=== PATIENT | female | born 1955 | race Caucasian/White ===

== ENCOUNTER → 2017-07-13 | Outpatient (CLI) | payer MEDICAID ==
[~2017-07-13] MED LIST: ANAPROX DS550 MG PO; ASPIRIN325 MG PO; ASPIRIN81 M1 PO; ATARAX25 MG PO; CEFPROZIL500 MG PO; FLEXERIL5 MG PO; GLUCOPHAGE1000 MG PO; IBUPROFEN800 MG PO; LEVAQUIN250 M1 PO; LEVAQUIN750 MG PO; LEVOFLOXACIN500 MG PO; LOPID600 MG PO; METFORMIN500 MG PO; MOTRIN800 MG PO; Motrin,Rufen800 MG PO; NITROFURANTOIN100 M2 PO; NORCO 325 MG-51 TAB PO; OMNICEF300 MG PO; OYSTER SHELL C500 MG PO; PLAVIX75 MG PO; POTASSIUM20 MEQ PO; PRILOSEC20 MG PO; ROBITUSSIN AC 10 MG/ PO; SKELAXIN800 MG PO; TENORETIC-25/501 TAB PO; TRAMADOL HCL50 MG PO; VICODIN 5/500 505 MG PO; VICODIN 500 MG-1 TAB PO; VICODIN ES 7501 TAB PO; VITAMIN D50000 I2 PO; VITAMIN D50000 UNIT PO; Zofran4 MG PO
== END | disposition home or self-care (01) ==
LOC: ORTHO 01:47
DX: M19.012 Primary osteoarthritis, left shoulder (principal)

== ENCOUNTER → 2017-07-27 | Outpatient (CLI) | payer MEDICARE, MEDICAID | END | disposition home or self-care (01) | LOC: MRI 10:29 | DX: M19.012 Primary osteoarthritis, left shoulder (principal); M75.102 Unspecified rotator cuff tear or rupture of left shoulder, not specified as traumatic ==

== ENCOUNTER 2017-08-24 12:33 | Inpatient (IN) | payer MEDICARE, MEDICAID ==
[~2017-08-24] VITALS: Ht 165.1 cm; Wt 99.3 kg
--- NOTE | ~2017-08-24 | PR ---
[place], [place] PROGRESS NOTE NAME: HARPAL OLMOS LOCATED WITHIN [facility] #: [id number] UNIT #: [id number] ROOM: 503 DOCTOR: JEANIE LIANG MD BIRTHDATE: [birth year] DOS: 08/29/2017 CARDIOLOGY PROGRESS NOTE SUBJECTIVE: The patient was seen at her bedside today, 08/29/2017, for followup of her chest pain and abnormal electrocardiogram. She is a 62-year-old woman who presented to the hospital on 08/24/2017 with bronchitis. During her hospitalization, she did complain to staff that she was having episodes of chest pain and therefore a pharmacologic stress test was done on 08/28/2017. This did show extensive anterior lateral and inferior ischemia with transient left ventricular cavity dilation. She did not have many fixed defects; however, and her resting ejection fraction was normal. We therefore felt that she would be best served by cardiac catheterization and revascularization. I discussed this with her caregivers as well as with the patient and her friends. They have agreed to proceed with catheterization. The study is now scheduled for 10:30 a.m. at the [facility] on 08/30/2017. The patient did have a brief episode of chest pain this morning, which resolved spontaneously. She is now pain free. PHYSICAL EXAMINATION: VITAL SIGNS: Today her pulse is 93 and regular, blood pressure is 158/90. She is afebrile and weighs 99.3 kilograms with a body mass index of 36.4. HEENT: Normocephalic and atraumatic. Extraocular muscles are intact. Sclerae are clear. Pupils are equal, round and react to light. The oral mucosa is moist. Tongue is midline. NECK: Supple. She has no jugular distention. Carotids are full. I heard no bruits. She had no neck or supraclavicular masses. LUNGS: Respirations are unlabored. CHEST: Clear to auscultation. She has no presacral edema or chest wall tenderness. HEART: Has a regular rhythm with a soft S4 gallop, but no S3 or murmur. The PMI is not displaced. There is no precordial heave, lift or thrill. ABDOMEN: Soft and normally active without masses, organomegaly or bruits. EXTREMITIES: Showed no edema. Peripheral pulses were absent in the right foot and diminished on the left. LABORATORY DATA: Today showed sodium 135, potassium 3.8, BUN of 26 and creatinine of 1.0. IMPRESSION: 1. Abnormal stress test, consistent with multivessel coronary artery disease. 2. Multiple risk factors for coronary artery disease including established peripheral vascular disease, diabetes, hypertension, hyperlipidemia and cigarette abuse. 3. Acute exacerbation of lung disease, controlled on current medical management. PLAN: The patient is being transferred to the [facility] on 08/30/2017 for catheterization and probable revascularization. The patient does [place], [place] PROGRESS NOTE NAME: HARPAL OLMOS UNIT #: [id number] ROOM: 503 DOCTOR: GARTH NUNN,JEANIE BIRTHDATE: [birth year] understand that there is a risk of heart attack, stroke, , bleeding, bruising, dye reaction, irregular heartbeat, infection, etc. and has agreed to proceed. Her indication is 17 with a score of 9. I thank the hospitalist physicians for asking our advice regarding her care. JEANIE LIANG MD CM:PNTRANS [phone] JEANIE LIANG MD 08/29/[id number] interface
--- NOTE | ~2017-08-24 | PROC NOTE ---
[place], [place] PROCEDURE NOTE NAME: HARPAL OLMOS UNIT #: [id number] ROOM: 503 DOCTOR: MILAN PRICE MD,SONNY BIRTHDATE: [birth year] DOS: 08/29/2017 BRONCHOSCOPY NOTE PREOPERATIVE DIAGNOSES: Persistent cough and wheezing, not resolving on current medical management. POSTOPERATIVE DIAGNOSES: Removal of the multiple plugs of mucus from the endobronchial tree bilaterally without any obstructive lesion and findings of acute tracheobronchitis. PROCEDURE DESCRIPTION: Informed consent obtained for the patient. She was brought to the OR and placed in supine position. Conscious sedation administered by the Anesthesia Department. After achieving proper sedation, airway introduced into the mouth. Bronchoscope advanced to the airway into laryngeal area. The epiglottis and vocal cords were seen. The bronchoscope was advanced to vocal cords, which were noted yellowish in color, moving symmetrically with movements, and then into the trachea, noted moderate to large amount of thick mucoid secretion with mixture of purulent secretion, suctioned at naomie level. The patient noted with severe deeper impaction in the lower lobe endobronchial tree bilaterally. All the endobronchial tree was inspected. Bronchial washing collected of bilateral endobronchial tree. Findings of acute tracheobronchitis noted. Submucosal edema of the endobronchial tree and the trachea. Postoperative findings will be discussed when the patient recovers from the effects of acute sedation. There were no other abnormal findings noted including any endobronchial obstructive lesions. Based on the bronchoscopy of the patient at this time, the dose of Solu-Medrol will be decreased to 60 mg b.i.d. from today. Cultures will be monitored. SONNY YATES MD CM:PROCNOTE:PROCEDURE NOTE [id number] SONNY PRICE MD
--- NOTE | ~2017-08-24 | PR ---
[place], [place] PROGRESS NOTE NAME: HARPAL OLMOS [facility] #: [id number] UNIT #: [id number] ROOM: 503 DOCTOR: MILAN PRICE MD,SONNY BIRTHDATE: [birth year] DOS: 08/29/2017 SUBJECTIVE: She remains the same at this time with the respiratory symptoms, severe coughing, shortness breath, wheezing, and chest tightness. Denies headache, nausea, and vomiting. Denies symptoms of diplopia. Denies edema or pain of the lower extremity. Denies symptoms of seizures. The remaining systems were reviewed and they were noted all negative. She remains n.p.o. past midnight and bronchoscopy is planned for today. OBJECTIVE: VITAL SIGNS: Normal temperature, respiratory rate 18, heart rate 89, blood pressure 166/81-143/71. The pulse oxygen saturation of the patient recorded on room air as 93% saturation. HEENT: Chronic obesity. NECK: Supple. CARDIOVASCULAR: S1, S2 audible without any added sounds. LUNGS: Moderate diminished breath sounds bilaterally with decreased air entry. Expiratory wheezing. There were no crackles. ABDOMEN: Soft with moderate obesity, bowel sounds present without tenderness. CENTRAL NERVOUS SYSTEM: Nonfocal. MUSCULOSKELETAL: No deformities. SKIN: No lesions or rashes. EXTREMITIES: Without any edema, clubbing, or cyanosis. LABORATORY DATA: Culture of the spontaneous sputum of the patient noted with light growth of yeast. The patient has a myocardial perfusion scan, which was done yesterday, assessed by Dr. Stark, reported with findings as abnormal study with finding of ischemia in the anterolateral and inferior wall with a transient left ventricular cavity dilatation consistent with three-vessel coronary artery disease. The left ventricle ejection fraction is noted at 81%. IMPRESSION: 1. The patient who has been currently noted with ongoing severe respiratory symptoms with exacerbation of COPD with nonresolving respiratory symptom. Musculoskeletal chest pain was also noted secondary to excessive cough, suspected coronary artery disease with current abnormal stress testing. 2. Chronic obesity. 3. History of nicotine dependence. PLAN OF MANAGEMENT: Proceed with the bronchoscopy at this time No changes in the treatment at this time immediately will be necessary. Any modification in treatment of the patient if necessary will be done after the bronchoscopy. The dose of corticosteroids essentially remains the same at 60 mg q. 8 hours. [place], [place] PROGRESS NOTE NAME: HARPAL OLMOS UNIT #: [id number] ROOM: 503 DOCTOR: MILAN PRICE MD,SONNY BIRTHDATE: [birth year] SONNY YATES MD CM:PNMANDIE [id number] SONNY PRICE MD 08/30/17 0205 interface
--- NOTE | ~2017-08-24 | CON ---
[place], [place] REPORT OF CONSULTATION NAME: HARPAL OLMOS [facility] #: [id number] UNIT #: [id number] ROOM: 503 DOCTOR: JEANIE LIANG MD BIRTHDATE: [birth year] DOS: 08/28/2017 CHIEF COMPLAINT: Chest discomfort and dyspnea. HISTORY OF PRESENT ILLNESS: The patient is a 62-year-old woman with multiple risk factors for coronary artery disease, but no previous history of heart disease. She is known to have peripheral vascular disease and is status post bilateral lower extremity angiography and stenting by Dr. Fountain. Recently, she has noticed increased cough productive of sputum associated with chest pressure. She was brought into the hospital where she was treated for pneumonitis, although her chest x-ray and CAT scan showed no evidence for infection. Her white count on admission and temperature were normal. In the hospital, she has continued to complain of chest discomfort, some of which is relieved by bronchodilators and some of which is not. She also complains of indigestion again, some of which is relieved by antacids and some is not. Today, she did undergo a pharmacologic stress test, which she tolerated well. It showed a large area of anterior, lateral and inferior reversible ischemia. Ejection fraction was preserved at 81% and no wall motion abnormalities were seen. However, the patient did have transient cavity dilation, suggesting multivessel disease. I notified this result to her attending physicians and they asked us to evaluate her further. PAST MEDICAL HISTORY: Includes: 1. Type 2 diabetes mellitus, currently on insulin. 2. Hyperlipidemia. 3. Hypertension. 4. Long-term intermittent, but ongoing tobacco abuse. 5. Status post bilateral lower extremity angiography and stenting. MEDICATIONS PRIOR TO ADMISSION: Aspirin 325 mg daily, atenolol with chlorthalidone 25/50 once a day, calcium carbonate 500 mg b.i.d., clopidogrel 75 mg daily, doxycycline 100 mg b.i.d., gemfibrozil 600 mg daily, glyburide 2.5 mg b.i.d., metformin 1000 mg b.i.d., potassium 20 mEq daily and prednisone 10 mg on 5 tablets daily on a tapering dose schedule. ALLERGIES: She lists allergies to SULFA DRUGS, ERYTHROMYCIN, and TRIMETHOPRIM. FAMILY HISTORY: Her father had coronary artery disease and diabetes. Her mother had coronary artery disease and diabetes. Both are . REVIEW OF SYSTEMS: The patient denies diplopia or loss of vision. She denies lightheadedness or syncope. She denies orthopnea or PND. She denies fevers, chills, sweats or recent weight change. She denies nausea or vomiting. She denies hemoptysis or hematemesis. She has had a minimally productive cough, but denies fevers or chills. She does admit to indigestion, some of which is exertional. She denies any change in bowel or bladder habits and denies blood in her stools or urine. She denies any peripheral edema. She does get some cramping and aching in her legs when she walks, she does note some tingling in her toes, which she describes as neuropathy. The remainder of the review of systems is negative except as noted above. [place], [place] REPORT OF CONSULTATION NAME: HARPAL OLMOS UNIT #: [id number] ROOM: [facility] DOCTOR: JEANIE LIANG MD BIRTHDATE: [birth year] SOCIAL HISTORY: The patient smokes 1/2-1 pack of cigarettes per week. PHYSICAL EXAMINATION: GENERAL: The patient is a well-nourished white female who is awake, alert and oriented. VITAL SIGNS: Pulse is 96 and regular, blood pressure is 159/73. She is afebrile. She weighs 99.3 kg and has a body mass index of 36.4. HEENT: Normocephalic and atraumatic. Extraocular muscles are intact. Sclerae are clear. Pupils equal, round and react to light. The oral mucosa is moist. Tongue is midline. NECK: Supple. She has no jugular distention. Carotids are full. I heard no bruits. She had no neck or supraclavicular masses and no thyromegaly. LUNGS: Respirations are unlabored at rest. She has mild expiratory prolongation now, but earlier today when I examined her. She did have audible wheezing bilaterally. She has no presacral edema or chest wall tenderness. CARDIOVASCULAR: Has a regular rhythm. She has soft S4 gallop, but no S3 or murmur. The PMI is not displaced. She has no precordial heave, lift or thrill. ABDOMEN: Soft and normally active without masses, organomegaly or bruits. EXTREMITIES: Showed no edema. Peripheral pulses are absent in the right foot and diminished on the left. LABORATORY DATA: I reviewed her electrocardiograms. On admission, she did have ST segment depressions in the mid precordial leads as well as the inferior leads that have improved on subsequent tracings. IMPRESSION: 1. Abnormal stress test consistent with multivessel coronary artery disease. 2. Multiple risk factors for coronary artery disease including established peripheral vascular disease, diabetes, hypertension, hyperlipidemia, and cigarette abuse. 3. Acute exacerbation of lung disease. 4. Type 2 diabetes mellitus, on insulin. 5. Essential hypertension. 6. Established peripheral vascular disease status post bilateral lower extremity stents. 7. Essential hypertension. PLAN: We will place the patient on high dose statin therapy and continue her aspirin. For now, I will withhold Plavix in case she does require a surgical intervention. I have discussed with the patient her options, but I believe that her best option is to proceed with catheterization as soon as her pulmonary status has been stabilized. I think that she can proceed with her bronchoscopy as scheduled since she does not show signs of unstable angina at this point, but should proceed with catheterization shortly after that once her pulmonary status has improved. Catheterization indication is 17 with a score of 9. I have discussed catheterization with the patient including risk of heart attack, stroke, , bleeding, bruising, dye reaction, irregular heartbeats, infections, etc. She has agrees to proceed. [place], [place] REPORT OF CONSULTATION NAME: HARPAL OLMOS UNIT #: [id number] ROOM: 503 DOCTOR: JEANIE LIANG MD BIRTHDATE: [birth year] [facility] and I thank the hospitalist group for asking our advice regarding the patient's care. JEANIE LIANG MD CM:CONSTR:REPORT OF CONSULTATION 1748 08/29/17 1604 interface
--- NOTE | ~2017-08-24 | CON ---
[place], [place] REPORT OF CONSULTATION NAME: HARPAL OLMOS [facility] #: [id number] UNIT #: [id number] ROOM: 503 DOCTOR: SONNY TAPIA MD BIRTHDATE: [birth year] DOS: 08/28/2017 PULMONARY CONSULTATION, EVALUATION, AND MANAGEMENT CONSULTATION REQUESTED BY: Hospitalist service. REASON FOR CONSULTATION: For assessment of persistent symptoms of shortness of breath with wheezing as well as nonproductive cough. HISTORY OF PRESENT ILLNESS: This is a 62-year-old white female who has been admitted to the hospital on 08/24/2017. The patient stated that she has been noted with ongoing acute respiratory complaints for the past several days. The symptoms of the patient started gradually with a cough, which was noted later on progression. Cough was noted initially productive and later noted completely nonproductive. Currently, the patient has not been able to expectorate sputum and trying to cough very hard. She was also noted symptoms of wheezing and chest tightness. Denies symptoms of hemoptysis. The patient denies symptoms of fever or chills. The symptoms of the patient prior to admission were noted approximately for 1 week. REVIEW OF SYSTEMS: CONSTITUTIONAL: Fatigue and tiredness noted, but no symptoms of fever or chills. EYES: Denies any burning, redness, or tenderness. EAR, NOSE, AND THROAT: No sore throat, hoarseness, otalgia, postnasal drainage or epistaxis. CARDIOVASCULAR: Denies anginal pain, edema or pain of the lower extremity. The patient reported pain, which was described in the right side of the chest, which is noncardiac [id number] at times worsened with the deep breathing and cough. GASTROINTESTINAL: Denies dysphagia, nausea, vomiting, diarrhea, abdominal pain, hematemesis, melena, or hematochezia. GENITOURINARY: Denies dysuria, suprapubic pain, hematuria. SKIN: Denies abnormal lesions or rashes. MUSCULOSKELETAL: Noted without any pain or tenderness. CENTRAL NERVOUS SYSTEM: No dizziness, headache, diplopia, syncopal episodes. Remaining systems were reviewed, they were noted all negative. PAST MEDICAL HISTORY: 1. Hyperlipidemia. 2. Type 2 diabetes mellitus. 3. Essential hypertension. 4. History of pancreatitis. 5. Nicotine dependence. 6. Peripheral vascular disease. PAST SURGICAL HISTORY: Reported with peripheral vascular disease intervention and stent insertion in bilateral lower extremity arteries. [place], [place] REPORT OF CONSULTATION NAME: HARPAL OLMOS [facility] #: [id number] UNIT #: [id number] ROOM: [facility] DOCTOR: SONNY TAPIA MD BIRTHDATE: [birth year] SOCIAL HISTORY: The patient stated she is single, not , does live with a boyfriend for many years, has 2 children. Tobacco use noted since teens for the patient up to 2-pack of cigarettes per day maximum and then gradual reduction of the tobacco use. The patient is currently smoking to about a pack a week. FAMILY HISTORY: The patient's father with complication related to coronary artery disease. Mother also with complication related to coronary artery disease. MEDICATIONS: Medication from home were noted as use of aspirin, Tenoretic, calcium with vitamin D, Plavix, gemfibrozil, metformin, and potassium chloride. DRUG ALLERGIES: 1. SULFA DRUGS. 2. ERYTHROMYCIN. PHYSICAL EXAMINATION: GENERAL: A 62-year-old female patient who has been currently noted without any acute distress, lying in the bed. VITAL SIGNS: Height of 5 feet 5 inches, weight of 219 pounds, BMI of 36.4, moderate obesity. HEENT: Head was atraumatic. Eyes nonicterus. NECK: Supple. Oral mucosa was moist. Moderate reduction of the posterior pharyngeal space, high tongue base crowding soft tissue structures. CARDIOVASCULAR: S1, S2 audible without any tachycardia or added sounds. LUNGS: Noted moderate decreased breath sounds, diffuse expiratory wheezing without any crackles at the present time. ABDOMEN: Soft. Bowel sounds present. SKIN: Visible skin, no lesions or rashes. MUSCULOSKELETAL: Without any acute deformities. CENTRAL NERVOUS SYSTEM: Cranial nerves 2-12 intact. There was no focal neurologic deficit. LABORATORY DATA: On admission, CBC for the patient hemoglobin 10.9, hematocrit 35.7, platelet count normal, WBC count normal, lactic acid 4.4. Subsequent followup lactic acid of the patient was noted at 3.3. The PT, PTT for the patient on 08/24/2017 was normal. BMP of the patient on 08/24/2017, BUN 40, creatinine 1.23. Remaining BMP was normal. Troponin for the patient 3 sets, which are noted on 08/24/2017 and the 08/25/2017 were all noted normal. CBC for the patient on 08/25/2017 was normal, WBC count, hemoglobin of 9.2, hematocrit 29.3, platelet count was normal. CMP for the patient on 08/25/2017, BUN 18, creatinine 1.24. Potassium 3.1. Influenza A and B, nasal washing antigen for the patient on 08/25/2017 were noted negative. Blood cultures 2 sets on the 08/24/2017 for this patient were noted no bacterial growths. Sputum for Gram stain and culture yesterday showed many white blood cells, moderate epithelial cells, moderate gram-positive cocci in pairs and chains and few gram-negative bacilli, and normal erlinda preliminary. CBC this morning, WBC count 11,000, remaining CBC essentially remains the same as previously. CMP of this morning, BUN 26, creatinine was normal. Sodium 135. [place], [place] REPORT OF CONSULTATION NAME: HARPAL OLMOS UNIT #: [id number] ROOM: [facility] DOCTOR: LEIGHANN TAPIA MDM BIRTHDATE: [birth year] DIAGNOSTIC DATA: Review of the radiology data for this patient. The CT scan of chest, which was done without contrast for the patient on 08/24/2017 was noted without any acute pulmonary infiltration, other major abnormalities. Incidental finding 2.6 cm adrenal adenoma was reported by the radiology services. Hepatic steatosis was also identified. IMPRESSION: 1. The patient will be currently admitted to the hospital with acute exacerbation of chronic obstructive pulmonary disease, acute tracheobronchitis for the past 4 days. Continue have severe nonproductive cough and wheezing intermittently as well as chest pain, which is a noncardiac for the patient with musculoskeletal pain because of the excessive cough and inability to expectorate sputum. 2. History of low-grade nicotine abuse and has smoked heavily in the past up to 2 packs of cigarettes per day. 3. Moderate obesity as well. PLAN OF MANAGEMENT: 1. The patient will be continued conservative treatment at this time, but she has not noted effective to resolve her current symptoms. The symptom remains persistent with suspicion of impaction of the mucus plug of the patient airways and current musculoskeletal chest pain. 2. Continue Solu-Medrol, bronchodilators, high dose of Mucinex 1200 mg p.o. b.i.d. She will benefit from therapeutic bronchoscopy, which was planned to be done tomorrow morning. The risk and benefits of procedure were done for this patient. Supportive plan of management and care. Absolute tobacco use was also discussed with the patient. She understood the procedure bronchoscopy and agreeable to have it done tomorrow morning. The procedure was scheduled to be done for this patient tomorrow. The n.p.o. past midnight status will be achieved. SONNY YATES MD CM:CONSTR:REPORT OF CONSULTATION 1218 08/29/17 0032 interface
[2017-08-24 12:36] VITALS: BP 137/63
[2017-08-24 13:36] VITALS: BP 122/65
[2017-08-24 13:39] LABS: BASO # 0.1 10*3/uL (0.0-0.1); EOS # 0.1 10*3/uL (0.0-0.4); EOS % 1.2 % (1.0-4.0); HEMATOCRIT 35.7 % (37.0-47.0); HEMOGLOBIN 10.9 g/dl (12.0-16.0); LYMPH % 33.9 % (27.0-41.0); MEAN CELL VOLUME 82.1 fl (81.0-99.0); MEAN CORPUSCULAR HGB 25.1 pg (27.0-31.0); MEAN CORPUSCULAR HGB CONC 30.5 g/dl (33.0-37.0); MEAN PLATELET VOLUME 12.2 fl (9.6-12.3); MONO # 0.7 10*3/uL (0.1-1.0); MONO % 11.4 % (3.0-9.0); NEUT % 52.2 % (47.0-73.0); PLATELET COUNT AUTOMATED 300 10*3/uL (130-400); RED BLOOD COUNT 4.35 10*6/uL (4.10-5.10); RED CELL DISTRI WIDTH 16.9 % (0-14.5); WHITE BLOOD COUNT 5.8 10*3/uL (4.8-10.8)
[2017-08-24 13:53] LABS: ACT PARTIAL THROMBO TIME 22.2 SECONDS (20.8-31.5); INTERNATIONAL NORM RATIO 0.9 (2.0-3.5)
[2017-08-24 13:54] LABS: ALBUMIN 3.5 gm/dl (3.1-4.5); ALKALINE PHOSPHATASE 95 U/L (45-117); BUN 20 mg/dl (7-24); CHLORIDE 99 mmol/L (98-107); CREATININE 1.23 mg/dL (0.55-1.02); LIPASE 466 U/L (73-393); POTASSIUM 3.7 mmol/L (3.5-5.1); SGOT/AST 26 IU/L (3-35); SGPT/ALT 20 U/L (12-78); SODIUM 138 mmol/L (136-145); TOTAL PROTEIN 8.2 gm/dL (6.4-8.2)
[2017-08-24 13:56] LABS: TROPONIN I < 0.015 ng/ml (<0.045)
[2017-08-24 15:10] VITALS: BP 115/56
[2017-08-24 16:00] VITALS: BP 108/58
[2017-08-24 20:00] VITALS: BP 132/57
[2017-08-25] VITALS: BP 152/68
[2017-08-25 06:56] LABS: MEAN PLATELET VOLUME 12.6 fl (9.6-12.3)
[2017-08-25 07:05] LABS: HEMOGLOBIN 9.2 g/dl (12.0-16.0); LYMPH # 0.6 10*3/uL (1.3-4.4); LYMPH % 12.6 % (27.0-41.0); MEAN CELL VOLUME 80.3 fl (81.0-99.0); MEAN CORPUSCULAR HGB 25.2 pg (27.0-31.0); MEAN CORPUSCULAR HGB CONC 31.4 g/dl (33.0-37.0); MONO # 0.3 10*3/uL (0.1-1.0); MONO % 5.2 % (3.0-9.0); NEUT # 3.9 10*3/uL (2.3-7.9); NEUT % 81.8 % (47.0-73.0); PLATELET COUNT AUTOMATED 239 10*3/uL (130-400); RED BLOOD COUNT 3.65 10*6/uL (4.10-5.10); RED CELL DISTRI WIDTH 16.7 % (0-14.5); WHITE BLOOD COUNT 4.8 10*3/uL (4.8-10.8)
[2017-08-25 07:06] LABS: HEMATOCRIT 29.3 % (37.0-47.0)
[2017-08-25 07:26] LABS: CREATININE 1.24 mg/dL (0.55-1.02); FREE T4 1.02 ng/dl (0.76-1.46); POTASSIUM 3.1 mmol/L (3.5-5.1); TOTAL PROTEIN 7.2 gm/dL (6.4-8.2)
[2017-08-25 07:32] LABS: THYROID STIM HORMONE (HS) 0.791 uIU/ml (0.358-4.75)
[2017-08-25 08:42] VITALS: BP 128/59
[2017-08-25 09:42] LABS: VITAMIN D, 25-HYDROXY 26.2 ng/mL (30-100)
[2017-08-25 12:00] VITALS: BP 131/65
[2017-08-25 16:00] VITALS: BP 146/60
[2017-08-25 20:00] VITALS: BP 150/68
[2017-08-26] VITALS: BP 140/62
[2017-08-26 06:44] LABS: BUN 19 mg/dl (7-24); CHLORIDE 98 mmol/L (98-107); CREATININE 1.08 mg/dL (0.55-1.02); PHOSPHOROUS 2.3 mg/dL (2.5-4.9); POTASSIUM 3.3 mmol/L (3.5-5.1); SODIUM 137 mmol/L (136-145)
[2017-08-26 08:00] VITALS: BP 142/70
[2017-08-26 12:00] VITALS: BP 135/73
[2017-08-26 16:00] VITALS: BP 131/59
[2017-08-26 20:00] VITALS: BP 145/72
[2017-08-27 00:03] VITALS: BP 121/61
[2017-08-27 06:15] LABS: HEMATOCRIT 28.9 % (37.0-47.0); HEMOGLOBIN 8.8 g/dl (12.0-16.0); LYMPH % 9.3 % (27.0-41.0); MEAN CELL VOLUME 81.9 fl (81.0-99.0); MEAN CORPUSCULAR HGB 24.9 pg (27.0-31.0); MEAN CORPUSCULAR HGB CONC 30.4 g/dl (33.0-37.0); MEAN PLATELET VOLUME 12.7 fl (9.6-12.3); MONO # 0.4 10*3/uL (0.1-1.0); NEUT # 8.8 10*3/uL (2.3-7.9); NEUT % 85.4 % (47.0-73.0); PLATELET COUNT AUTOMATED 271 10*3/uL (130-400); RED BLOOD COUNT 3.53 10*6/uL (4.10-5.10); RED CELL DISTRI WIDTH 16.7 % (0-14.5); WHITE BLOOD COUNT 10.3 10*3/uL (4.8-10.8)
[2017-08-27 06:45] LABS: BUN 23 mg/dl (7-24); CHLORIDE 96 mmol/L (98-107); CREATININE 0.98 mg/dL (0.55-1.02); POTASSIUM 3.3 mmol/L (3.5-5.1); SODIUM 137 mmol/L (136-145)
[2017-08-27 08:00] VITALS: BP 156/78
[2017-08-27 12:00] VITALS: BP 165/83
[2017-08-27] MEDS ORDERED: DOXYCYCLINE100 M3 PO (12:02)
[2017-08-27] MEDS ORDERED: PREDNISONE10 MG PO (12:02)
[2017-08-27] MEDS ORDERED: Diabeta,Micron2.5 MG PO (12:03)
[2017-08-27 16:07] VITALS: BP 170/76
[2017-08-27 20:09] VITALS: BP 130/64
[2017-08-28] VITALS: BP 142/66; BP 150/71
[2017-08-28 08:00] VITALS: BP 158/85
[2017-08-28 09:01] LABS: BASO % 0.1 % (0.0-1.0); HEMATOCRIT 31.4 % (37.0-47.0); HEMOGLOBIN 9.8 g/dl (12.0-16.0); LYMPH # 1.3 10*3/uL (1.3-4.4); LYMPH % 12.1 % (27.0-41.0); MEAN CELL VOLUME 79.9 fl (81.0-99.0); MEAN CORPUSCULAR HGB 24.9 pg (27.0-31.0); MEAN CORPUSCULAR HGB CONC 31.2 g/dl (33.0-37.0); MEAN PLATELET VOLUME 11.9 fl (9.6-12.3); MONO # 0.7 10*3/uL (0.1-1.0); NEUT # 8.8 10*3/uL (2.3-7.9); NEUT % 80.4 % (47.0-73.0); PLATELET COUNT AUTOMATED 271 10*3/uL (130-400); RED BLOOD COUNT 3.93 10*6/uL (4.10-5.10); RED CELL DISTRI WIDTH 16.6 % (0-14.5); RETICULOCYTE % 1.53 % (0.50-2.50)
[2017-08-28 09:19] LABS: IRON 31 ug/dL (50-170); TOTAL IRON BINDING CAPACITY 443 ug/dl (250-450)
[2017-08-28 09:23] LABS: ALBUMIN 3.4 gm/dl (3.1-4.5); ALKALINE PHOSPHATASE 69 U/L (45-117); BUN 26 mg/dl (7-24); CHLORIDE 93 mmol/L (98-107); POTASSIUM 3.8 mmol/L (3.5-5.1); SGOT/AST 16 IU/L (3-35); SGPT/ALT 21 U/L (12-78); SODIUM 135 mmol/L (136-145); TOTAL PROTEIN 7.5 gm/dL (6.4-8.2)
[2017-08-28 12:00] VITALS: BP 159/73
[2017-08-28 16:00] VITALS: BP 174/78
[2017-08-28 20:00] VITALS: BP 159/72
[2017-08-29] VITALS (9 sets, daily range): BP systolic 142–176; BP diastolic 66–90
[2017-08-30] VITALS: BP 165/78
[2017-08-30 16:08] LABS: ACID FAST SMEAR Negative (.); ACID FAST SPEC PROCESSING Concentration (.)
== END 2017-08-30 08:01 | disposition short-term general hospital (02) | DRG 193 ==
LOC: ED 12:33 → EDHOLD 15:22 → 5E 15:22
PROVIDERS: Emergency Medicine; Family Medicine; Internal Medicine; Internal Medicine Critical Care Medicine; Registered Nurse
PROC: 4A02XM4 Measurement of Cardiac Total Activity, External Approach (ICD-10-PCS; principal; 2017-08-28)
PROC: 3E073KZ Introduction of Other Diagnostic Substance into Coronary Artery, Percutaneous Approach (ICD-10-PCS; principal; 2017-08-28)
PROC: 0BC98ZZ Extirpation of Matter from Lingula Bronchus, Via Natural or Artificial Opening Endoscopic (ICD-10-PCS; 2017-08-29)
PROC: 0BC78ZZ Extirpation of Matter from Left Main Bronchus, Via Natural or Artificial Opening Endoscopic (ICD-10-PCS; 2017-08-29)
PROC: 0BC88ZZ Extirpation of Matter from Left Upper Lobe Bronchus, Via Natural or Artificial Opening Endoscopic (ICD-10-PCS; 2017-08-29)
PROC: 0BC68ZZ Extirpation of Matter from Right Lower Lobe Bronchus, Via Natural or Artificial Opening Endoscopic (ICD-10-PCS; 2017-08-29)
PROC: 0BC48ZZ Extirpation of Matter from Right Upper Lobe Bronchus, Via Natural or Artificial Opening Endoscopic (ICD-10-PCS; 2017-08-29)
PROC: 0BCB8ZZ Extirpation of Matter from Left Lower Lobe Bronchus, Via Natural or Artificial Opening Endoscopic (ICD-10-PCS; 2017-08-29)
PROC: 0BC58ZZ Extirpation of Matter from Right Middle Lobe Bronchus, Via Natural or Artificial Opening Endoscopic (ICD-10-PCS; 2017-08-29)
PROC: 0BC38ZZ Extirpation of Matter from Right Main Bronchus, Via Natural or Artificial Opening Endoscopic (ICD-10-PCS; 2017-08-29)
PROC: 0BC18ZZ Extirpation of Matter from Trachea, Via Natural or Artificial Opening Endoscopic (ICD-10-PCS; 2017-08-29)
DX: J18.9 Pneumonia, unspecified organism (principal); N17.0 Acute kidney failure with tubular necrosis; E87.2 Acidosis; J44.0 Chronic obstructive pulmonary disease with (acute) lower respiratory infection; J44.1 Chronic obstructive pulmonary disease with (acute) exacerbation; T17.590A Other foreign object in bronchus causing asphyxiation, initial encounter; E11.65 Type 2 diabetes mellitus with hyperglycemia; D50.9 Iron deficiency anemia, unspecified; D35.00 Benign neoplasm of unspecified adrenal gland; R07.89 Other chest pain; E11.51 Type 2 diabetes mellitus with diabetic peripheral angiopathy without gangrene; J20.9 Acute bronchitis, unspecified; E66.8 Other obesity; E86.0 Dehydration; X58.XXXA Exposure to other specified factors, initial encounter; B34.9 Viral infection, unspecified; I10 Essential (primary) hypertension; E78.5 Hyperlipidemia, unspecified; Z72.0 Tobacco use; Z88.1 Allergy status to other antibiotic agents; Z88.2 Allergy status to sulfonamides; Z88.8 Allergy status to other drugs, medicaments and biological substances; Z79.2 Long term (current) use of antibiotics; Z79.82 Long term (current) use of aspirin; Z79.84 Long term (current) use of oral hypoglycemic drugs; Z79.899 Other long term (current) drug therapy; Z87.440 Personal history of urinary (tract) infections; Z90.49 Acquired absence of other specified parts of digestive tract; Z98.51 Tubal ligation status; Z83.3 Family history of diabetes mellitus; Z82.3 Family history of stroke; Z82.49 Family history of ischemic heart disease and other diseases of the circulatory system; Z71.6 Tobacco abuse counseling; Y93.89 Activity, other specified; Y92.89 Other specified places as the place of occurrence of the external cause; Y99.8 Other external cause status; Z68.36 Body mass index [BMI] 36.0-36.9, adult

== ENCOUNTER 2017-10-27 11:31 | Emergency (ER) | payer MEDICARE, MEDICAID ==
[~2017-10-27] VITALS: Ht 165.1 cm; Wt 99.8 kg
[~2017-10-27 11:31] MED LIST changes: +DOXYCYCLINE100 M3 PO; +Diabeta,Micron2.5 MG PO; +PREDNISONE10 MG PO
[2017-10-27] MEDS ORDERED: MEDROL DOSEPAK4 MG PO (13:25)
[2017-10-27] MEDS ORDERED: Fioricet 325 MG1 TAB PO (13:26)
== END 2017-10-27 13:28 | disposition home or self-care (01) ==
LOC: ED 11:31
DX: S16.1XXA Strain of muscle, fascia and tendon at neck level, initial encounter (principal); E11.9 Type 2 diabetes mellitus without complications; E78.5 Hyperlipidemia, unspecified; I10 Essential (primary) hypertension; Z88.2 Allergy status to sulfonamides; Z88.1 Allergy status to other antibiotic agents; Z79.82 Long term (current) use of aspirin; Z79.84 Long term (current) use of oral hypoglycemic drugs; Z79.899 Other long term (current) drug therapy; Z90.49 Acquired absence of other specified parts of digestive tract; Z98.51 Tubal ligation status; X58.XXXA Exposure to other specified factors, initial encounter; Y93.89 Activity, other specified; Y92.89 Other specified places as the place of occurrence of the external cause; Y99.8 Other external cause status

== ENCOUNTER 2018-01-06 14:54 | Emergency (ER) | payer MEDICARE, MEDICAID ==
[~2018-01-06] VITALS: Ht 165.1 cm; Wt 97.5 kg
[~2018-01-06 14:54] MED LIST changes: +Fioricet 325 MG1 TAB PO; +MEDROL DOSEPAK4 MG PO
[2018-01-06 15:05] LABS: BILIRUBIN NEGATIVE (NEGATIVE); BLOOD 1+ (NEGATIVE); CLARITY SL CLOUDY (CLEAR); COLOR YELLOW (YELLOW); GLUCOSE NEGATIVE (NEGATIVE); KETONE NEGATIVE (NEGATIVE); LEUKO ESTERASE 3+ (NEGATIVE); NITRITE NEGATIVE (NEGATIVE); UROBILINOGEN 0.2 E.U./dl (0.2-1.0)
[2018-01-06 15:13] LABS: WBC TNTC wbc/hpf (0-5)
[2018-01-06] MEDS ORDERED: PYRIDIUM200 M1 PO (15:18)
[2018-01-06] MEDS ORDERED: MACROBID100 M1 PO (15:18)
== END 2018-01-06 15:30 | disposition home or self-care (01) ==
LOC: ED 14:54
PROVIDERS: Nurse Practitioner Family
DX: N39.0 Urinary tract infection, site not specified (principal); I10 Essential (primary) hypertension; E78.5 Hyperlipidemia, unspecified; F17.200 Nicotine dependence, unspecified, uncomplicated; Z88.2 Allergy status to sulfonamides; Z88.1 Allergy status to other antibiotic agents; Z79.899 Other long term (current) drug therapy; Z79.82 Long term (current) use of aspirin

== ENCOUNTER → 2018-01-11 | Outpatient (CLI) | payer MEDICARE, MEDICAID ==
[~2018-01-11] MED LIST changes: +MACROBID100 M1 PO; +PYRIDIUM200 M1 PO
== END | disposition home or self-care (01) ==
LOC: MRI 13:43
DX: M48.02 Spinal stenosis, cervical region (principal); M50.322 Other cervical disc degeneration at C5-C6 level; M50.323 Other cervical disc degeneration at C6-C7 level; M50.222 Other cervical disc displacement at C5-C6 level; M50.223 Other cervical disc displacement at C6-C7 level; M54.12 Radiculopathy, cervical region

== ENCOUNTER → 2019-02-28 | Outpatient (CLI) | payer MEDICARE, MEDICAID | END | disposition home or self-care (01) | LOC: CT 10:20 → MAMMO 10:20 → CT 10:52 | DX: R42 Dizziness and giddiness (principal); R51 Headache ==

== ENCOUNTER 2019-05-16 10:14 | Emergency (ER) | payer MEDICARE, MEDICAID ==
[~2019-05-16] VITALS: Ht 165.1 cm; Wt 92.1 kg
[2019-05-16 10:37] LABS: BILIRUBIN 1+ (NEGATIVE); BLOOD 3+ (NEGATIVE); CLARITY CLOUDY (CLEAR); GLUCOSE NEGATIVE (NEGATIVE); KETONE NEGATIVE (NEGATIVE); LEUKO ESTERASE 3+ (NEGATIVE); NITRITE POSITIVE (NEGATIVE); SPECIFIC GRAVITY 1.015 (1.005-1.030)
[2019-05-16 10:49] LABS: COLOR ORANGE (YELLOW)
[2019-05-16 10:51] LABS: RBC TNTC rbc/hpf (0-2)
[2019-05-16] MEDS ORDERED: CEFUROXIME250 MG PO (11:07)
[2019-05-16] MEDS ORDERED: PYRIDIUM100 MG PO (12:08)
== END 2019-05-16 12:30 | disposition home or self-care (01) ==
LOC: ED 10:14
PROVIDERS: Nurse Practitioner Family
DX: N39.0 Urinary tract infection, site not specified (principal); F17.200 Nicotine dependence, unspecified, uncomplicated; Z79.899 Other long term (current) drug therapy; Z79.82 Long term (current) use of aspirin; Z88.2 Allergy status to sulfonamides; Z88.1 Allergy status to other antibiotic agents

== ENCOUNTER 2019-06-26 10:25 | Inpatient (IN) | payer MEDICARE, MEDICAID ==
[~2019-06-26] VITALS: Ht 165.1 cm; Wt 89.2 kg
[2019-06-26] VITALS (7 sets, daily range): BP systolic 138–177; BP diastolic 70–78
[~2019-06-26 10:25] MED LIST changes: +CEFUROXIME250 MG PO; +KLOR-CON M2020 ME1 PO; +LOPID600 M1 PO; -LOPID600 MG PO; -POTASSIUM20 MEQ PO; +PYRIDIUM100 MG PO
--- NOTE | 2019-06-26 11:05 | NUR ---
PT HAS BEEN GIVEN A LUNCH TRAY AT THIS TIME. WILL RECHECK GLUCOSE LEVEL. PT REMAINS ALERT. CRISTINO PACHECO
[2019-06-26 11:32] LABS: BASO # 0.1 10*3/uL (0.0-0.1); BASO % 0.5 % (0.0-1.0); EOS % 0.1 % (1.0-4.0); HEMATOCRIT 38.4 % (37.0-47.0); HEMOGLOBIN 11.3 g/dl (12.0-16.0); LYMPH # 0.9 10*3/uL (1.3-4.4); LYMPH % 8.2 % (27.0-41.0); MEAN CELL VOLUME 83.1 fl (81.0-99.0); MEAN CORPUSCULAR HGB 24.5 pg (27.0-31.0); MEAN CORPUSCULAR HGB CONC 29.4 g/dl (33.0-37.0); MEAN PLATELET VOLUME 10.8 fl (9.6-12.3); MONO # 0.4 10*3/uL (0.1-1.0); MONO % 3.8 % (3.0-9.0); NEUT # 9.2 10*3/uL (2.3-7.9); NEUT % 87.1 % (47.0-73.0); PLATELET COUNT AUTOMATED 402 10*3/uL (130-400); RED BLOOD COUNT 4.62 10*6/uL (4.10-5.10); RED CELL DISTRI WIDTH 18.5 % (0-14.5); WHITE BLOOD COUNT 10.6 10*3/uL (4.8-10.8)
[2019-06-26 11:43] LABS: INTERNATIONAL NORM RATIO 0.9 (2.0-3.5)
[2019-06-26 11:59] LABS: ALBUMIN 3.4 gm/dl (3.1-4.5); ALKALINE PHOSPHATASE 110 U/L (45-117); BUN 21 mg/dl (7-24); CHLORIDE 99 mmol/L (98-107); CREATININE 1.33 mg/dL (0.55-1.02); LIPASE 209 U/L (73-393); POTASSIUM 3.7 mmol/L (3.5-5.1); SGOT/AST 20 IU/L (3-35); SGPT/ALT 12 U/L (12-78); SODIUM 136 mmol/L (136-145); TOTAL PROTEIN 7.9 gm/dL (6.4-8.2)
[2019-06-26 12:08] LABS: TROPONIN I < 0.015 ng/ml (<0.045)
--- NOTE | 2019-06-26 12:26 | NUR ---
PT IS SLEEPING NOW. RESPIRATIONS ARE NON-LABORED. SHE DID EAT LUNCH TRAY. MOST RECENT GLUCOSE IS 97. CRISTINO PACHECO
--- NOTE | 2019-06-26 12:50 | NUR ---
PT HAS BEEN AMBULATORY TO THE BATHROOM,DID PROVIDE URINE FOR A UA. REMAINS ALERT WITHOUT DISTRESS. CRISTINO PACHECO
[2019-06-26 13:22] LABS: BILIRUBIN NEGATIVE (NEGATIVE); BLOOD TRACE-INTACT (NEGATIVE); CLARITY SL CLOUDY (CLEAR); COLOR YELLOW (YELLOW); GLUCOSE NEGATIVE (NEGATIVE); KETONE NEGATIVE (NEGATIVE); LEUKO ESTERASE NEGATIVE (NEGATIVE); NITRITE NEGATIVE (NEGATIVE); SPECIFIC GRAVITY 1.015 (1.005-1.030); UROBILINOGEN 0.2 E.U./dl (0.2-1.0)
[2019-06-26 13:47] LABS: YEAST 1+
--- NOTE | 2019-06-26 14:25 | NUR ---
LACTIC ACID OF 3.9 REPORTED AT THIS TIME TO DR DE LA CRUZ. CRISTINO RN
--- NOTE | 2019-06-26 14:50 | NUR ---
A 64, admitted to , under the services of NANCY Marrufo DO with a diagnosis of ARF,HYPOGLYCEMIA, DEHYDRATION. Chief complaint is HYPOGLYCEMIA. Patient arrived via bed from ER. Monitor applied. Initial assessment completed. Vital signs taken and recorded. NANCY MARRUFO DO notified of admission to the unit. Orders received. See assessment for past medical history, medications and allergies. Patient and/or family oriented to unit. [facility] visitation policy reviewed. Clothing/patient valuable form completed. BOY PETERS
[2019-06-26] MEDS ORDERED: ALLEGRA-D 24 H1 EACH PO (15:12)
[2019-06-26] MEDS ORDERED: SALINE NASAL SP88 ML NAS (15:12)
[2019-06-26] MEDS ORDERED: CLOPIDOGREL75 MG PO (15:14)
[2019-06-26] MEDS ORDERED: GLYBURIDE2.5 MG PO (15:16)
[2019-06-26] MEDS ORDERED: IRON325 M1 PO (15:17)
--- NOTE | 2019-06-26 15:18 | NUR ---
MED REC UPDATED BASED ON LIST PROVIDED AND PT RECALL
--- NOTE | 2019-06-26 16:37 | NUR ---
DR MARTINS NOTIFIED REPEAT LACTIC ACID 3.1
--- NOTE | 2019-06-26 18:21 | NUR ---
NOTIFIED DR BOWER OF LACTIC ACID OF 2.7. NO NEW ORDERS AT THIS TIME.
--- NOTE | 2019-06-26 20:01 | NUR ---
PTS BP 162/[address] ROJAS. STATED TO GIVE HER A ONE TIME LOW DOSE OF ATENOLOL.
--- NOTE | 2019-06-26 22:00 | NUR ---
BLOOD SUGAR 181
--- NOTE | 2019-06-26 22:00 | NUR ---
NOTIFIFED DR ROJAS OF PATIENTS BP 164/70 MANUALLY. STATED HE WOULD PUT ORDERS IN.
--- NOTE | 2019-06-27 01:42 | NUR ---
Patient resting quietly with no c/o or s/s of discomfort. Respirations easy and regular. Vital signs stable. No overt distress. Call light within reach. HISSOM,COLLETTE
--- NOTE | 2019-06-27 05:03 | NUR ---
24 HR chart check completed.
--- NOTE | 2019-06-27 05:12 | NUR ---
PT COMPLAINS OF HEADACHE. MEDICATED PER ORDER. WILL MONITOR FOR RELIEF. VOICES NO OTHER CONCERNS AT THIS TIME. RESTING IN BED. CALL LIGHT WITHIN REACH. BP 144/82 MANUALLY
[2019-06-27 05:18] VITALS: BP 144/82
--- NOTE | 2019-06-27 05:59 | NUR ---
BLOOD SUGAR 166
--- NOTE | 2019-06-27 06:22 | NUR ---
TYLENOL "HELPED A LITTLE BIT" FOR HEADACHE PER PT
[2019-06-27 06:40] LABS: BASO # 0.1 10*3/uL (0.0-0.1); BASO % 0.8 % (0.0-1.0); EOS # 0.1 10*3/uL (0.0-0.4); HEMOGLOBIN 10.3 g/dl (12.0-16.0); LYMPH # 2.1 10*3/uL (1.3-4.4); LYMPH % 26.9 % (27.0-41.0); MEAN CELL VOLUME 82.7 fl (81.0-99.0); MEAN CORPUSCULAR HGB 24.3 pg (27.0-31.0); MEAN CORPUSCULAR HGB CONC 29.4 g/dl (33.0-37.0); MEAN PLATELET VOLUME 11.3 fl (9.6-12.3); MONO # 0.7 10*3/uL (0.1-1.0); MONO % 8.8 % (3.0-9.0); NEUT # 4.9 10*3/uL (2.3-7.9); NEUT % 62.2 % (47.0-73.0); PLATELET COUNT AUTOMATED 355 10*3/uL (130-400); RED BLOOD COUNT 4.23 10*6/uL (4.10-5.10); RED CELL DISTRI WIDTH 18.5 % (0-14.5); WHITE BLOOD COUNT 7.9 10*3/uL (4.8-10.8)
[2019-06-27 07:00] LABS: CHLORIDE 101 mmol/L (98-107); POTASSIUM 3.3 mmol/L (3.5-5.1); SODIUM 139 mmol/L (136-145)
[2019-06-27 07:15] LABS: BUN 20 mg/dl (7-24); CHOLESTEROL 194 mg/dL (<200); CREATININE 0.98 mg/dL (0.55-1.02); FREE T4 0.92 ng/dl (0.76-1.46); HDL CHOLESTEROL 35 mg/dl (40-60); LDL CHOLESTEROL 131 mg/dL (9-159); PHOSPHOROUS 3.1 mg/dL (2.5-4.9); TRIGLYCERIDES 142 mg/dl (<150); VLDL CHOLESTEROL 28 mg/dL (6-40)
--- NOTE | 2019-06-27 09:00 | NUR ---
Corporate Communications Manager in to talk to patient. Patient states lives at home with son. There are few steps in the home. Physician: cindy wade [facility]acy: [facility] Home health services: none Patient's level of ADLs: INDEPENDENT Patient has working utilities: all working DME: none Follow-up physician's appointment after d/c: will be made by hospitalist nurse director upon discharge Does patient want to access PORTAL?: no Discharge plan discussed with patient, she lives at home with her son, she is independent in adls and ambulation, she states she will be returning home when medically stable, patient will be discharged to home today and denies any home needs. VERÓNICA MONTIEL
[2019-06-27 09:49] LABS: VITAMIN D, 25-HYDROXY 36.3 ng/mL (30-100)
--- NOTE | 2019-06-27 12:58 | NUR ---
Discharge instructions reviewed with patient/family. Patient receptive and verbalizes understanding. Follow-up care arranged. Written instructions given to patient/family. VAMSI LARA
== END 2019-06-27 12:58 | disposition home or self-care (01) | DRG 640 ==
LOC: ED 10:25 → EDHOLD 13:49 → 4E 13:49
PROVIDERS: Emergency Medicine; Internal Medicine; ADMIT Internal Medicine
DX: E86.0 Dehydration (principal); N17.0 Acute kidney failure with tubular necrosis; E11.649 Type 2 diabetes mellitus with hypoglycemia without coma; E87.2 Acidosis; D50.9 Iron deficiency anemia, unspecified; R79.82 Elevated C-reactive protein (CRP); F17.210 Nicotine dependence, cigarettes, uncomplicated; E11.42 Type 2 diabetes mellitus with diabetic polyneuropathy; I10 Essential (primary) hypertension; E78.5 Hyperlipidemia, unspecified; E11.51 Type 2 diabetes mellitus with diabetic peripheral angiopathy without gangrene; Z88.1 Allergy status to other antibiotic agents; Z88.2 Allergy status to sulfonamides; Z90.49 Acquired absence of other specified parts of digestive tract; Z98.51 Tubal ligation status; Z71.6 Tobacco abuse counseling; Z79.4 Long term (current) use of insulin; Z83.3 Family history of diabetes mellitus; Z82.3 Family history of stroke; Z82.49 Family history of ischemic heart disease and other diseases of the circulatory system

== ENCOUNTER 2019-07-11 23:17 | Emergency (ER) | payer MEDICARE, MEDICAID ==
[~2019-07-11] VITALS: Wt 87.5 kg
[~2019-07-11 23:17] MED LIST changes: +ALLEGRA-D 24 H1 EACH PO; +CLOPIDOGREL75 MG PO; +GLYBURIDE2.5 MG PO; +IRON325 M1 PO; +SALINE NASAL SP88 ML NAS
== END 2019-07-12 01:56 | disposition home or self-care (01) ==
LOC: ED 23:17
DX: S56.892A Other injury of other muscles, fascia and tendons at forearm level, left arm, initial encounter (principal); I10 Essential (primary) hypertension; E11.51 Type 2 diabetes mellitus with diabetic peripheral angiopathy without gangrene; K21.9 Gastro-esophageal reflux disease without esophagitis; E78.00 Pure hypercholesterolemia, unspecified; Z88.2 Allergy status to sulfonamides; Z88.1 Allergy status to other antibiotic agents; Z79.899 Other long term (current) drug therapy; Z79.82 Long term (current) use of aspirin; X58.XXXA Exposure to other specified factors, initial encounter; Y93.89 Activity, other specified; Y92.89 Other specified places as the place of occurrence of the external cause; Y99.8 Other external cause status

== ENCOUNTER → 2019-07-23 | Outpatient (CLI) | payer MEDICARE, MEDICAID | END | disposition home or self-care (01) | LOC: US 06:06 | DX: M79.602 Pain in left arm (principal); M79.89 Other specified soft tissue disorders ==

== ENCOUNTER → 2019-08-16 | Outpatient (CLI) | payer MEDICARE, MEDICAID | END | disposition home or self-care (01) | LOC: US 06:30 | DX: N28.1 Cyst of kidney, acquired (principal); N39.0 Urinary tract infection, site not specified; N28.9 Disorder of kidney and ureter, unspecified; R30.0 Dysuria; I10 Essential (primary) hypertension ==

== ENCOUNTER 2019-11-21 11:50 | Emergency (ER) | payer MEDICARE, MEDICAID ==
[~2019-11-21] VITALS: Ht 154.9 cm; Wt 83.9 kg
[2019-11-21 12:42] LABS: BASO % 0.5 % (0.0-1.0); EOS % 0.3 % (1.0-4.0); HEMATOCRIT 40.8 % (37.0-47.0); LYMPH # 1.2 10*3/uL (1.3-4.4); LYMPH % 15.1 % (27.0-41.0); MEAN CELL VOLUME 90.1 fl (81.0-99.0); MEAN CORPUSCULAR HGB 28.7 pg (27.0-31.0); MEAN CORPUSCULAR HGB CONC 31.9 g/dl (33.0-37.0); MONO # 0.4 10*3/uL (0.1-1.0); MONO % 5.5 % (3.0-9.0); NEUT # 6.1 10*3/uL (2.3-7.9); NEUT % 78.3 % (47.0-73.0); PLATELET COUNT AUTOMATED 250 10*3/uL (130-400); RED BLOOD COUNT 4.53 10*6/uL (4.10-5.10); RED CELL DISTRI WIDTH 16.2 % (0-14.5); WHITE BLOOD COUNT 7.8 10*3/uL (4.8-10.8)
[2019-11-21 12:49] LABS: ACT PARTIAL THROMBO TIME 27.3 SECONDS (20.0-32.1)
[2019-11-21 12:52] LABS: ALBUMIN 3.4 gm/dl (3.1-4.5); ALKALINE PHOSPHATASE 108 U/L (45-117); BUN 21 mg/dl (7-24); CHLORIDE 102 mmol/L (98-107); CREATININE 1.01 mg/dL (0.55-1.02); LIPASE 113 U/L (73-393); POTASSIUM 3.5 mmol/L (3.5-5.1); SGOT/AST 11 IU/L (3-35); SGPT/ALT 13 U/L (12-78); SODIUM 137 mmol/L (136-145); TOTAL PROTEIN 7.4 gm/dL (6.4-8.2)
[2019-11-21 12:54] LABS: TROPONIN I < 0.015 ng/ml (<0.045)
== END 2019-11-21 14:35 | disposition short-term general hospital (02) ==
LOC: ED 11:50
PROVIDERS: Emergency Medicine
DX: I63.9 Cerebral infarction, unspecified (principal); E11.9 Type 2 diabetes mellitus without complications; K21.9 Gastro-esophageal reflux disease without esophagitis; I10 Essential (primary) hypertension; E78.00 Pure hypercholesterolemia, unspecified; Z88.2 Allergy status to sulfonamides; Z88.1 Allergy status to other antibiotic agents; Z79.899 Other long term (current) drug therapy; Z79.82 Long term (current) use of aspirin; Z90.49 Acquired absence of other specified parts of digestive tract; Z98.51 Tubal ligation status

== ENCOUNTER 2020-01-09 05:16 | Emergency (ER) | payer MEDICARE, MEDICAID ==
[~2020-01-09] VITALS: Ht 165.1 cm; Wt 76.8 kg
[2020-01-09 05:56] LABS: BASO # 0.1 10*3/uL (0.0-0.1); BASO % 0.3 % (0.0-1.0); EOS % 0.1 % (1.0-4.0); HEMATOCRIT 44.4 % (37.0-47.0); LYMPH # 2.5 10*3/uL (1.3-4.4); LYMPH % 15.3 % (27.0-41.0); MEAN CELL VOLUME 103.3 fl (81.0-99.0); MEAN CORPUSCULAR HGB 29.8 pg (27.0-31.0); MEAN CORPUSCULAR HGB CONC 28.8 g/dl (33.0-37.0); MONO # 0.9 10*3/uL (0.1-1.0); MONO % 5.2 % (3.0-9.0); NEUT # 12.6 10*3/uL (2.3-7.9); NEUT % 77.9 % (47.0-73.0); PLATELET COUNT AUTOMATED 445 10*3/uL (130-400); RED CELL DISTRI WIDTH 15.8 % (0-14.5); WHITE BLOOD COUNT 16.2 10*3/uL (4.8-10.8)
[2020-01-09 06:07] LABS: ACT PARTIAL THROMBO TIME 41.4 SECONDS (20.0-32.1); INTERNATIONAL NORM RATIO 1.5 (2.0-3.5)
[2020-01-09 06:11] LABS: ALBUMIN 3.3 gm/dl (3.1-4.5); CREATININE 4.04 mg/dL (0.55-1.02); TOTAL PROTEIN 7.6 gm/dL (6.4-8.2)
[2020-01-09 06:12] LABS: TROPONIN I 0.021 ng/ml (<0.045)
[2020-01-09 06:19] LABS: POTASSIUM 6.7 mmol/L (3.5-5.1)
== END 2020-01-09 09:23 | disposition short-term general hospital (02) ==
LOC: ED 05:16
PROVIDERS: Emergency Medicine
DX: I63.9 Cerebral infarction, unspecified (principal); I21.4 Non-ST elevation (NSTEMI) myocardial infarction; E87.5 Hyperkalemia; I12.9 Hypertensive chronic kidney disease with stage 1 through stage 4 chronic kidney disease, or unspecified chronic kidney disease; E11.22 Type 2 diabetes mellitus with diabetic chronic kidney disease; N18.9 Chronic kidney disease, unspecified; K21.9 Gastro-esophageal reflux disease without esophagitis; E78.00 Pure hypercholesterolemia, unspecified; F17.200 Nicotine dependence, unspecified, uncomplicated; Z88.1 Allergy status to other antibiotic agents; Z88.2 Allergy status to sulfonamides; Z79.899 Other long term (current) drug therapy; Z79.82 Long term (current) use of aspirin